=== PATIENT | male | born 1960 | race Caucasian/White ===

== ENCOUNTER 2017-08-06 07:16 | Day surgery (SDC) | payer OTHER ==
[2017-08-06] MEDS ORDERED: PROPOFOL 40 ML (09:25)
== END 2017-08-06 10:37 | disposition home or self-care (01) ==
LOC: GIL 07:16
DX: Z12.11 Encounter for screening for malignant neoplasm of colon (principal); D12.5 Benign neoplasm of sigmoid colon; K64.8 Other hemorrhoids; I25.10 Atherosclerotic heart disease of native coronary artery without angina pectoris; E78.5 Hyperlipidemia, unspecified
CPT/HCPCS: 45380; 82962; 88305; 93005